=== PATIENT | male | born 1960 | race Caucasian/White ===

== ENCOUNTER 2018-10-31 08:09 | Day surgery (SDC) | payer BC, OTHER ==
[2018-10-31] MEDS ORDERED: PROPOFOL 10 MG/ML VIAL IV ONE (08:10)
[2018-10-31] MEDS ORDERED: LIDOCAINE 2% MDV (20MG/ML) 20ML VIAL IV ONE (08:10)
--- NOTE | 2018-11-01 09:40 | Operative Note ---
OPERATION: COLONOSCOPY. PREOPERATIVE DIAGNOSIS: Colon cancer screening, average risk, 10-year interval. POSTOPERATIVE DIAGNOSIS: Left-sided diverticulosis, otherwise normal exam. PREPARATION QUALITY: Good. ESTIMATED BLOOD LOSS: None. SPECIMENS: None. PROCEDURE: After informed consent was obtained from the patient, he was placed in the left lateral decubitus position. He was sedated and monitored by the department of anesthesia. Digital rectal exam was unremarkable. A well- lubricated [id number] colonoscope was inserted into the rectum and advanced to the cecum. Preparation quality was good to excellent. The cecum, cecal bulb, ileocecal valve, appendiceal orifice, ascending colon, and transverse colon were carefully inspected. No polyps, mass lesions, or inflammation was seen in the left colon. Primarily involving the descending colon more so than the sigmoid colon demonstrated scattered diverticulosis of a moderate severity. No polyps, mass lesions, or inflammation was seen. The rectum was unremarkable in forward and J-turn views. The endoscope was straightened, the rectal ampulla deflated, and the endoscope was removed. RECOMMENDATIONS: The patient should follow a high-fiber diet and consider use of a fiber supplement such as Citrucel and Benefiber. He should undergo repeat exam in 10 years or sooner should symptoms warrant. As always, thank you for allowing me to participate in the healthcare of your patients. CC: DO JACQUELINE Tovar
== END 2018-10-31 10:10 | disposition home or self-care (01) ==
LOC: HOP 08:09
PROVIDERS: ATTEND Internal Medicine Gastroenterology
DX: Z12.11 Encounter for screening for malignant neoplasm of colon (principal); K57.30 Diverticulosis of large intestine without perforation or abscess without bleeding; I10 Essential (primary) hypertension; I50.9 Heart failure, unspecified; I48.91 Unspecified atrial fibrillation
CPT/HCPCS: 00812; G0121